=== PATIENT | female | born 1955 | race Caucasian/White ===

== ENCOUNTER 2020-04-01 21:14 | Outpatient (CLI) | payer SELFPAY | END 2020-04-01 21:15 | disposition home or self-care (01) | LOC: COV 21:14 | PROVIDERS: ATTEND Family Medicine | DX: Z20.822 Contact with and (suspected) exposure to COVID-19 (principal) ==

== ENCOUNTER 2020-06-03 17:18 | Outpatient (CLI) | payer SELFPAY | END 2020-06-03 17:19 | disposition home or self-care (01) | LOC: COV 17:18 | PROVIDERS: ATTEND Family Medicine | DX: Z20.822 Contact with and (suspected) exposure to COVID-19 (principal) ==

== ENCOUNTER 2020-12-09 13:52 | Outpatient (CLI) | payer MEDICARE, OTHER | END 2020-12-09 13:53 | disposition home or self-care (01) | LOC: COV 13:52 | PROVIDERS: ATTEND Internal Medicine Gastroenterology | DX: Z01.812 Encounter for preprocedural laboratory examination (principal); Z86.010 Personal history of colon polyps; Z20.822 Contact with and (suspected) exposure to COVID-19 ==